=== PATIENT | female | born 1990 ===

== ENCOUNTER 2022-04-20 17:28 | Emergency (ER) | payer SELFPAY ==
[2022-04-20 18:35] LABS: Basophils % (Auto) 0.4 % (0.0-1.8); Eosinophils % (Auto) 0.5 % (0.0-4.3); Hematocrit 39.3 % (30.3-42.9); Hemoglobin 13.2 gm/dl (10.1-14.3); Lymphocytes # (Auto) 1.6 K/mm3 (1.2-5.4); Lymphocytes % (Auto) 16.9 % (13.4-35.0); Mean Corpuscular HGB Conc 34 % (30-34); Mean Corpuscular Volume 83 fl (79-97); Monocytes # (Auto) 0.6 K/mm3 (0.0-0.8); Monocytes % (Auto) 6.3 % (0.0-7.3); Platelet Count 254 K/mm3 (140-440); Red Blood Count 4.76 M/mm3 (3.65-5.03)
[2022-04-20 18:43] LABS: Alanine Aminotransferase 10 units/L (7-56); Albumin 4.6 g/dL (3.9-5); Blood Urea Nitrogen 15 mg/dL (7-17); Calcium 9.6 mg/dL (8.4-10.2); Hemolysis Index 9
[2022-04-20 18:46] LABS: BUN/Creatinine Ratio 25
--- NOTE | 2022-04-20 23:42 | XRay Report ---
CHEST 2 VIEWS INDICATION / CLINICAL INFORMATION: chest pain, tachypnea. FINDINGS: SUPPORT DEVICES: None. HEART / MEDIASTINUM: No significant abnormality. LUNGS / PLEURA: No significant pulmonary or pleural abnormality. No pneumothorax. ADDITIONAL FINDINGS: No significant additional findings. IMPRESSION: 1. No acute findings. Signer Name: Alex Marshall MD Signed: 04/20/2022 11:38 PM Workstation Name: [id number]
--- NOTE | 2022-04-21 06:40 | Emergency Department Report ---
ED General Adult HPI - General Chief complaint: Chest Pain Stated complaint: Left flank pain. Left-sided chest wall pain Time Seen by Provider: 04/21/22 06:21 Source: patient, RN notes reviewed Mode of arrival: Ambulatory Limitations: No Limitations - History of Present Illness Initial comments: The patient was evaluated in the emergency department for symptoms described in the history of present illness. He/she was evaluated in the context of the g lobal COVID-19 pandemic, which necessitated consideration that the patient might be at risk for infection with the virus that causes COVID-19. Institutional protocols and algorithms that pertain to the evaluation of patients at risk for COVID-19 are in a state of rapid change based on information released by regulatory bodies including the CDC and federal and state organizations. These policies and algorithms were followed during the patient's care in the emergency department. Please note that these policies, procedures and recommendations changed on a rapid basis. During the entire history and physical examination, I am chaperoned by nurse Chanelle Izaguirre This is a pleasant and cooperative 31-year-old female. She is unexpectedly today. She is currently 3, para 2, last menstrual period is last month. The patient denies chronic medical conditions. The patient presents to the department today with complaint of nontraumatic left upper quadrant and flank pain, urinary frequency, and complaint that she feels like she might have a urinary tract infection. She denies headache, neck pain, upper abdominal pain, vomiting diarrhea. She denies travel, surgery, imm obilization, but does believe that her mother may have had a history of blood clots, but is not certain. The patient herself denies a history of having blood clots. She also endorses a central and left-sided chest wall pain since yesterday, which does not radiate to the back, arms or neck. There is no vomiting, diaphoresis or exertional shortness of breath. The chest wall pain increases with palpation and decreases with rest and position. She is right-hand dominant and denies strenuous physical activities and heavy lifting. -: days(s) Location: chest, abdomen Severity scale (0 -10): 7 Quality: other Consistency: other Improves with: other Worsens with: other - Related Data Previous Rx's Medication Instructions Recorded Last Taken Type Acetaminophen [Non-Aspirin Extra 500 mg PO Q6HR PRN #30 tablet 04/21/22 Unknown Rx Strength] Doxylamine Succinate/Vit B6 1 each PO QHS PRN #30 tablet. 04/21/22 Unknown Rx [Rosa Nicolas 10-10 mg Tablet] Patricia Root [Patricia] 250 mg PO QID PRN #30 capsule 04/21/22 Unknown Rx cephALEXin [Keflex] 500 mg PO Q6HR 7 Days #27 capsule 04/21/22 Unknown Rx Allergies Allergy/AdvReac Type Severity Reaction Status Date / Time No Known Allergies Allergy Unverified 04/20/22 17:37 ED Review of Systems ROS: Stated complaint: CHEST PAIN/SOB Other details as noted in HPI Constitutional: denies: fever Eyes: denies: eye discharge ENT: denies: epistaxis Respiratory: denies: cough Cardiovascular: chest pain Gastrointestinal: denies: nausea, vomiting, diarrhea Genitourinary: frequency Musculoskeletal: back pain Neurological: denies: weakness Hematological/Lymphatic: denies: easy bleeding ED Past Medical Hx - Past Medical History Previous Medical History?: No - Surgical History Past Surgical History?: No - Medications Home Medications: Home Medications Medication Instructions Recorded Confirmed Last Taken Type Acetaminophen [Non-Aspirin Extra 500 mg PO Q6HR PRN #30 tablet 04/21/22 Unknown Rx Strength] Doxylamine Succinate/Vit B6 1 each PO QHS PRN #30 tablet. 04/21/22 Unknown Rx [Rosa Nicolas 10-10 mg Tablet] Patricia Root [Patricia] 250 mg PO QID PRN #30 capsule 04/21/22 Unknown Rx cephALEXin [Keflex] 500 mg PO Q6HR 7 Days #27 capsule 04/21/22 Unknown Rx ED Physical Exam - General Limitations: No Limitations General appearance: alert, in no apparent distress - Head Head exam: Present: atraumatic, normocephalic - Eye Eye exam: Present: normal appearance, EOMI. Absent: nystagmus - ENT ENT exam: Present: normal exam, normal orophraynx, mucous membranes moist, normal external ear exam - Neck Neck exam: Present: normal inspection, full ROM. Absent: tenderness, meningismus - Respiratory Respiratory exam: Present: normal lung sounds bilaterally, chest wall tenderness. Absent: respiratory distress, wheezes, rales, rhonchi, stridor - Cardiovascular Cardiovascular Exam: Present: regular rate, normal rhythm, normal heart sounds. Absent: bradycardia, tachycardia, irregular rhythm, systolic murmur, diastolic murmur, rubs, gallop - GI/Abdominal GI/Abdominal exam: Present: soft. Absent: distended, tenderness, guarding, rebound, rigid, pulsatile mass - Extremities Exam Extremities exam: Present: normal inspection, full ROM, other (2+ pulses noted in the bilateral upper and lower extremities. There is no palpable cord. negative Homans sign. Muscular compartments are soft. The pelvis is stable.). Absent: pedal edema, calf tenderness - Back Exam Back exam: Present: normal inspection, full ROM. Absent: tenderness, CVA tenderness (R), CVA tenderness (L), paraspinal tenderness, vertebral tenderness - Neurological Exam Neurological exam: Present: alert, oriented X3, normal gait, other (No facial droop. Tongue midline. Extraocular movements intact bilaterally. Facial sensation intact to light touch in V1, V2, V3 distribution bilaterally. 5 and a 5 strength in 4 extremities. Sensation intact to light touch in 4 extremities.). Absent: motor sensory deficit - Psychiatric Psychiatric exam: Present: normal affect, normal mood - Skin Skin exam: Present: warm, dry, intact, normal color. Absent: rash ED Course Vital Signs 04/20/22 04/21/22 04/21/22 17:34 01:11 06:49 Temperature 98.5 F 98.8 F Pulse Rate 118 H 96 H 91 H Respiratory 28 H 16 15 Rate Blood Pressure 124/82 120/81 144/95 [Left] O2 Sat by Pulse 98 98 99 Oximetry - Reevaluation(s) Reevaluation #1: 04/21/22 08:26 Differential diagnosis, including but not limited to: Costochondritis, coronary artery disease, pulmonary embolism, UTI, renal colic, , ectopic Assessment and plan: 31-year-old female, with resolved tachycardia, who is not currently tachycardic, tachypneic or hypoxic, I find to be low risk by Wells criteria for pulmonary embolism, low pretest probability for pulmonary embolism, with negative D-dimer. Troponin negative x3, EKG unchanged x2, patient at low risk for major adverse cardiac event, acute MT is ruled out. Chest x-ray obtained prior to my personal evaluation, negative for acute findings, equal pulses in the upper and lower extremities, no pulsatile abdominal mass, aortic disease quite unlikely. Patient has no CVA tenderness or abdominal tenderness. I doubt that the patient has pyelonephritis, or renal colic. We will obtain urinalysis, renal ultrasound, and obstetrics ultrasound. I discussed this plan of care with the patient. She is agreeable to the plan of care. Have reassessed the patient multiple times, and she is in no acute distress. 04/21/22 10:29 Patient reassessed multiple times. She is in no acute distress. She is asking to eat. D-dimer negative. Renal ultrasound negative. Ultrasound confirms IUP. Patient does endorse some irritative and obstructive urinary symptoms. While minimally contaminated, the patient does corroborate urinary tract symptoms, and we will therefore cover empirically with Keflex. Patient suitable for discharge with outpatient follow-up. Return precautions are reviewed. All questions answered 04/21/22 10:34 No bleeding at this time, outpatient primary care or [facility] follow-up on type and screen. No indication for RhoGAM at this time. There is no CVA tenderness. The patient is nontoxic-appearing. There is no fever. I do not clinically suspect pyelonephritis at this time ED Medical Decision Making - Lab Data Result diagrams: 04/20/22 17:57 04/20/22 17:57 Vital Signs 04/20/22 04/21/22 04/21/22 17:34 01:11 06:49 Temperature 98.5 F 98.8 F Pulse Rate 118 H 96 H 91 H Respiratory 28 H 16 15 Rate Blood Pressure 124/82 120/81 144/95 [Left] O2 Sat by Pulse 98 98 99 Oximetry Lab Results 04/20/22 04/20/22 04/20/22 Range/Units 17:57 17:57 17:57 WBC 9.6 (4.5-11.0) K/mm3 RBC 4.76 (3.65-5.03) M/mm3 Hgb 13.2 (10.1-14.3) gm/dl Hct 39.3 (30.3-42.9) % MCV 83 (79-97) fl MCH 28 (28-32) pg MCHC 34 (30-34) % RDW 14.0 (13.2-15.2) % Plt Count 254 (140-440) K/mm3 Lymph % (Auto) 16.9 (13.4-35.0) % [place] % (Auto) 6.3 (0.0-7.3) % Eos % (Auto) 0.5 (0.0-4.3) % Baso % (Auto) 0.4 (0.0-1.8) % Lymph # (Auto) 1.6 (1.2-5.4) K/mm3 [place] # (Auto) 0.6 (0.0-0.8) K/mm3 Eos # (Auto) 0.0 (0.0-0.4) K/mm3 Baso # (Auto) 0.0 (0.0-0.1) K/mm3 Seg Neutrophils % 75.9 H (40.0-70.0) % Seg Neutrophils # 7.3 (1.8-7.7) K/mm3 D-Dimer (0-234) ng/mlDDU Sodium 137 (137-145) mmol/L Potassium 4.0 (3.6-5.0) mmol/L Chloride 104.1 (98-107) mmol/L Carbon Dioxide 21 L (22-30) mmol/L Anion Gap 16 mmol/L BUN 15 (7-17) mg/dL Creatinine 0.6 (0.6-1.2) mg/dL Estimated GFR > 60 ml/min BUN/Creatinine Ratio 25 % Glucose 105 H (65-100) mg/dL Calcium 9.6 (8.4-10.2) mg/dL Total Bilirubin 0.30 (0.1-1.2) mg/dL AST 13 (5-40) units/L ALT 10 (7-56) units/L Alkaline Phosphatase 95 (35-129) units/L Troponin T < 0.010 (0.00-0.029) ng/mL Total Protein 6.8 (6.3-8.2) g/dL Albumin 4.6 (3.9-5) g/dL Albumin/Globulin Ratio 2.1 % HCG, Qual Positive (Negative) HCG, Quant (0-4) mIU/mL Urine Color (Yellow) Urine Turbidity (Clear) Specific [place] (Man) (1.003-1.030) Ur Protein (Man) (Negative) mg/dL Ur Ketones (Man) (Negative) Ur Nitrite (Man) (Negative) Urine Bilirubin (Man) (Negative) Urine Ictotest (Negative) Leukocyte Esterase (Man) (Negative) Urine WBC (Auto) (0.0-6.0) /HPF Urine RBC (Auto) (0.0-6.0) /HPF U Epithel Cells (Auto) (0-13.0) /HPF Urine Bacteria (Auto) (Negative) /HPF Urine RBC (Manual) (Negative) Urine Mucus /HPF 04/20/22 04/20/22 04/21/22 Range/Units 20:50 23:54 06:47 WBC (4.5-11.0) K/mm3 RBC (3.65-5.03) M/mm3 Hgb (10.1-14.3) gm/dl Hct (30.3-42.9) % MCV (79-97) fl MCH (28-32) pg MCHC (30-34) % RDW (13.2-15.2) % Plt Count (140-440) K/mm3 Lymph % (Auto) (13.4-35.0) % [place] % (Auto) (0.0-7.3) % Eos % (Auto) (0.0-4.3) % Baso % (Auto) (0.0-1.8) % Lymph # (Auto) (1.2-5.4) K/mm3 [place] # (Auto) (0.0-0.8) K/mm3 Eos # (Auto) (0.0-0.4) K/mm3 Baso # (Auto) (0.0-0.1) K/mm3 Seg Neutrophils % (40.0-70.0) % Seg Neutrophils # (1.8-7.7) K/mm3 D-Dimer 180.93 (0-234) ng/mlDDU Sodium (137-145) mmol/L Potassium (3.6-5.0) mmol/L Chloride (98-107) mmol/L Carbon Dioxide (22-30) mmol/L Anion Gap mmol/L BUN (7-17) mg/dL Creatinine (0.6-1.2) mg/dL Estimated GFR ml/min BUN/Creatinine Ratio % Glucose (65-100) mg/dL Calcium (8.4-10.2) mg/dL Total Bilirubin (0.1-1.2) mg/dL AST (5-40) units/L ALT (7-56) units/L Alkaline Phosphatase (35-129) units/L Troponin T < 0.010 < 0.010 (0.00-0.029) ng/mL Total Protein (6.3-8.2) g/dL Albumin (3.9-5) g/dL Albumin/Globulin Ratio % HCG, Qual (Negative) HCG, Quant (0-4) mIU/mL Urine Color (Yellow) Urine Turbidity (Clear) Specific [place] (Man) (1.003-1.030) Ur Protein (Man) (Negative) mg/dL Ur Ketones (Man) (Negative) Ur Nitrite (Man) (Negative) Urine Bilirubin (Man) (Negative) Urine Ictotest (Negative) Leukocyte Esterase (Man) (Negative) Urine WBC (Auto) (0.0-6.0) /HPF Urine RBC (Auto) (0.0-6.0) /HPF U Epithel Cells (Auto) (0-13.0) /HPF Urine Bacteria (Auto) (Negative) /HPF Urine RBC (Manual) (Negative) Urine Mucus /HPF 04/21/22 04/21/22 Range/Units 06:47 07:40 WBC (4.5-11.0) K/mm3 RBC (3.65-5.03) M/mm3 Hgb (10.1-14.3) gm/dl Hct (30.3-42.9) % MCV (79-97) fl MCH (28-32) pg MCHC (30-34) % RDW (13.2-15.2) % Plt Count (140-440) K/mm3 Lymph % (Auto) (13.4-35.0) % [place] % (Auto) (0.0-7.3) % Eos % (Auto) (0.0-4.3) % Baso % (Auto) (0.0-1.8) % Lymph # (Auto) (1.2-5.4) K/mm3 [place] # (Auto) (0.0-0.8) K/mm3 Eos # (Auto) (0.0-0.4) K/mm3 Baso # (Auto) (0.0-0.1) K/mm3 Seg Neutrophils % (40.0-70.0) % Seg Neutrophils # (1.8-7.7) K/mm3 D-Dimer (0-234) ng/mlDDU Sodium (137-145) mmol/L Potassium (3.6-5.0) mmol/L Chloride (98-107) mmol/L Carbon Dioxide (22-30) mmol/L Anion Gap mmol/L BUN (7-17) mg/dL Creatinine (0.6-1.2) mg/dL Estimated GFR ml/min BUN/Creatinine Ratio % Glucose (65-100) mg/dL Calcium (8.4-10.2) mg/dL Total Bilirubin (0.1-1.2) mg/dL AST (5-40) units/L ALT (7-56) units/L Alkaline Phosphatase (35-129) units/L Troponin T (0.00-0.029) ng/mL Total Protein (6.3-8.2) g/dL Albumin (3.9-5) g/dL Albumin/Globulin Ratio % HCG, Qual (Negative) HCG, Quant 74586 H (0-4) mIU/mL Urine Color Yellow (Yellow) Urine Turbidity Cloudy (Clear) Specific [place] (Man) 1.030 (1.003-1.030) Ur Protein (Man) 2+ (Negative) mg/dL Ur Ketones (Man) 0 (Negative) Ur Nitrite (Man) Negative (Negative) Urine Bilirubin (Man) Moderate (Negative) Urine Ictotest Negative (Negative) Leukocyte Esterase (Man) 2+ (Negative) Urine WBC (Auto) 18.0 H (0.0-6.0) /HPF Urine RBC (Auto) 1.0 (0.0-6.0) /HPF U Epithel Cells (Auto) 16.0 H (0-13.0) /HPF Urine Bacteria (Auto) 1+ (Negative) /HPF Urine RBC (Manual) Negative (Negative) Urine Mucus Few /HPF - EKG Data -: EKG Interpreted by Me EKG shows normal: sinus rhythm Rate: normal - EKG Data When compared to previous EKG there are: previous EKG unavailable 04/21/22 08:22 EKG #1 is interpreted by myself at 06: 00 a.m. Sinus rhythm, with a rate of 94 bpm. Normal axis, normal P wave axis, QTC 4 4 3 ms, nonspecific T wave abnormalities, with premature atrial contractions. EKG #1 is unchanged from EKG #2 EKG is interpreted by myself at 06: 00 AM There is no prior EKG available for comparison. This is a sinus rhythm, with a rate of 92 bpm. Normal axis, normal P wave axis, nonspecific T wave abnormalities, and motion artifact. This is an abnormal EKG. This is not a STEMI. This is EKG #2. This is unchanged from prior EKG. - Radiology Data Radiology results: pending, report reviewed, image reviewed CHEST 2 VIEWS INDICATION / CLINICAL INFORMATION: chest pain, tachypnea. FINDINGS: SUPPORT DEVICES: None. HEART / MEDIASTINUM: No significant abnormality. LUNGS / PLEURA: No significant pulmonary or pleural abnormality. No pneumothorax. ADDITIONAL FINDINGS: No significant additional findings. IMPRESSION: 1. No acute findings. Signer Name: Alex Marshall MD Signed: 04/20/2022 10:38 PM Workstation Name: [id number] [facility] OBSTETRIC ULTRASOUND ULTRASOUND OB TRANSVAGINAL HISTORY: Left flank pain and , dating COMPARISON: None. TECHNIQUE: Routine transabdominal and transvaginal OB ultrasound performed. FINDINGS: Uterus: Mildly enlarged measuring 10.5 x 5.3 x 7.3 cm. Gestational Sac: An empty gestational sac is identified near the uterine fundus measuring 1.32 mm corre lating with a 6 week 1 day . Yolk Sac: There appears to be a tiny yolk sac. Fetus/Embryo: Not seen Embryonic/ cardiac activity: Not seen Ovaries: The ovaries are not visualized. No adnexal cyst or mass is appreciated. Additional findings: None. IMPRESSION An intrauterine gestational sac containing a tiny yolk sac is identified. No pole or heart activity is seen at this time. This could represent a very early normal . Correlation with beta hCG levels and close interval follow-up is recommended. The ovaries are not visualized. No obvious adnexal mass. Signer Name: Shiv Hunter Jr, MD Signed: 04/21/2022 7:35 AM Workstation Name: [id number] ULTRASOUND RENAL LEFT INDICATION / CLINICAL INFORMATION: Left flank pain and . COMPARISON: None available. FINDINGS: LEFT KIDNEY: Length = 11.2 cm. [normal > 9 cm] - Parenchymal Thickness = 1.6 cm. [normal > 1.5 cm] - Echogenicity: Normal. - Hydronephrosis: None. - Cyst or mass: No significant abnormality. - Stones: None seen. URINARY BLADDER: The bladder is empty and poorly evaluated. FREE FLUID: None. ADDITIONAL FINDINGS: None. IMPRESSION: No significant abnormality. Signer Name: Shiv Hunter Jr, MD Signed: 04/21/2022 7:31 AM Workstation Name: [id number] [facility] OBSTETRIC ULTRASOUND ULTRASOUND OB TRANSVAGINAL HISTORY: Left flank pain and , dating COMPARISON: None. TECHNIQUE: Routine transabdominal and transvaginal OB ultrasound performed. FINDINGS: Uterus: Mi ldly enlarged measuring 10.5 x 5.3 x 7.3 cm. Gestational Sac: An empty gestational sac is identified near the uterine fundus measuring 1.32 mm correlating with a 6 week 1 day . Yolk Sac: There appears to be a tiny yolk sac. Fetus/Embryo: Not seen Embryonic/ cardiac activity: Not seen Ovaries: The ovaries are not visualized. No adnexal cyst or mass is appreciated. Additional findings: None. IMPRESSION An intrauterine gestational sac containing a tiny yolk sac is identified. No pole or heart activity is seen at this time. This could represent a very early normal . Correlation with beta hCG levels and close interval follow-up is recommended. The ovaries are not visualized. No obvious adnexal mass. Signer Name: Shiv Hunter Jr, MD Signed: 04/21/2022 7:35 AM Workstation Name: [id number] Critical care attestation.: If time is entered above; I have spent that time in minutes in the direct care of this critically ill patient, excluding procedure time. ED Disposition Clinical Impression: Chest wall pain, Left flank pain, , Bacteriuria Disposition: 01 HOME / SELF CARE / HOMELESS Is pt being admited?: No Does the pt Need Aspirin: No Condition: Good Instructions: Nonspecific Chest Pain, Adult Additional Instructions: Cultures are sent today, and results will be available in the next 3 to 5 days. Please have your primary care doctor or [facility] doctor contact the medical records department to obtain culture results. Patient will be started empirically on an antibiotic called Keflex, but it is very important to follow- up with outpatient primary care or OB, to make certain that Keflex is appropriate for possible UTI. Occasionally, antibiotics are prescribed, and culture results demonstrates need for additional or change antibiotics. Therefore, we recommend follow-up with a primary care doctor or [facility] doctor as soon as possible to initiate outpatient care. Alternate ice packs and heat packs as needed for physical pain, take the multivitamins as directed, and nausea medicines as needed. May take Tylenol as needed for pain. Do not take Motrin, ibuprofen, Naprosyn, Aleve. Avoid consumption of alcohol, tobacco and smoke products. Advance diet as tolerated. Please return to the emergency room right away with new pain, worsened pain, migration of pain, projectile vomiting, change in mental status, confusion, inability tolerate liquid feeds, new, worsened or different symptoms not present on the initial emergency room evaluation Prescriptions: Doxylamine Succinate/Vit B6 [Rosa Nicolas 10-10 mg Tablet] 1 each PO QHS PRN #30 tablet.dr PRN Reason: Nausea Patricia Root [Patricia] 250 mg PO QID PRN #30 capsule PRN Reason: Nausea cephALEXin [Keflex] 500 mg PO Q6HR 7 Days #27 capsule Acetaminophen [Non-Aspirin Extra Strength] 500 mg PO Q6HR PRN #30 tablet PRN Reason: Pain , Severe (7-10) Referrals: [facility] [Provider Group] - 3-5 Days [facility] [Provider Group] - 3-5 Days [facility] [Provider Group] - 3-5 Days Forms: Work/School Release Form(ED)
--- NOTE | 2022-04-21 08:35 | Ultrasound Report ---
ULTRASOUND RENAL LEFT INDICATION / CLINICAL INFORMATION: Left flank pain and . COMPARISON: None available. FINDINGS: LEFT KIDNEY: Length = 11.2 cm. [normal > 9 cm] - Parenchymal Thickness = 1.6 cm. [normal > 1.5 cm] - Echogenicity: Normal. - Hydronephrosis: None. - Cyst or mass: No significant abnormality. - Stones: None seen. URINARY BLADDER: The bladder is empty and poorly evaluated. FREE FLUID: None. ADDITIONAL FINDINGS: None. IMPRESSION: No significant abnormality. Signer Name: Shiv Hunter Jr, MD Signed: 04/21/2022 8:31 AM Workstation Name: [id number]
--- NOTE | 2022-04-21 08:39 | Ultrasound Report ---
[facility] OBSTETRIC ULTRASOUND ULTRASOUND OB TRANSVAGINAL HISTORY: Left flank pain and , dating COMPARISON: None. TECHNIQUE: Routine transabdominal and transvaginal OB ultrasound performed. FINDINGS: Uterus: Mildly enlarged measuring 10.5 x 5.3 x 7.3 cm. Gestational Sac: An empty gestational sac is identified near the uterine fundus measuring 1.32 mm cor relating with a 6 week 1 day . Yolk Sac: There appears to be a tiny yolk sac. Fetus/Embryo: Not seen Embryonic/ cardiac activity: Not seen Ovaries: The ovaries are not visualized. No adnexal cyst or mass is appreciated. Additional findings: None. IMPRESSION An intrauterine gestational sac containing a tiny yolk sac is identified. No pole or hear t activity is seen at this time. This could represent a very early normal . Correlation with beta hCG levels and close interval follow-up is recommended. The ovaries are not visualized. No obvious adnexal mass. Signer Name: Shiv Hunter Jr, MD Signed: 04/21/2022 8:35 AM Workstation Name: [id number]
[2022-04-21 09:30] LABS: Color,Urine Yellow (Yellow); Ictotest,Urine Negative (Negative)
[2022-04-21 09:38] LABS: Bacteria,Urine 1+ /HPF (Negative); Mucus,Urine FEW /HPF
--- NOTE | 2022-04-21 10:04 | Electrocardiograph Report ---
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
--- NOTE | 2022-04-21 10:04 | Electrocardiograph Report ---
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
[2022-04-21] MEDS ORDERED: cephALEXin 500 MG CAP PO ONE (10:32)
[2022-04-21 11:03] VITALS: BP 134/98
== END 2022-04-21 11:00 | disposition home or self-care (01) ==
LOC: ED 17:28
DX: O26.891 Other specified pregnancy related conditions, first trimester (principal); R07.89 Other chest pain; R82.71 Bacteriuria; R10.12 Left upper quadrant pain; Z3A.01 Less than 8 weeks gestation of pregnancy; Z79.899 Other long term (current) drug therapy
CPT/HCPCS: 36415; 71046; 76775; 76801; 76817; 80053; 84484; 84703; 85025; 93005; 99284